=== PATIENT | female | born 2005 | race Caucasian/White ===

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

== ENCOUNTER 2023-08-18 16:37 | Emergency (ER) | payer OTHER ==
[~2023-08-18] VITALS: Ht 165.1 cm; Wt 95.3 kg
[~2023-08-18 16:37] MED LIST changes: +LORA1T126 PO; +PROM118S5 PO
[2023-08-18 16:41] VITALS: BP 114/81; PULSE 123; RESP 18; TEMP 97.9; O2SAT 97
[2023-08-18] MEDS ORDERED: IBUP-2213 PO (17:17)
[2023-08-18] MEDS ORDERED: PRED20TA5 PO (17:17)
[2023-08-18] MEDS: NACL 0.9% 1,000 ML IV ONE (17:22)
[2023-08-18] MEDS: KETOROLAC 30 MG/ML VIAL IVP ONE (17:25)
[2023-08-18] MEDS: PENICILLIN G BENZATHINE L-A 1.2 MU/2 ML SYR IM ONE (17:36)
[2023-08-18 18:03] VITALS: BP 126/83; PULSE 105; RESP 18; TEMP 97.9; O2SAT 98
== END 2023-08-18 18:05 | disposition home or self-care (01) ==
LOC: MED 16:37
DX: J02.0 Streptococcal pharyngitis (principal); R11.2 Nausea with vomiting, unspecified; F12.90 Cannabis use, unspecified, uncomplicated; Z79.899 Other long term (current) drug therapy
CPT/HCPCS: 81002; 81025; 96361; 96372; 96374; 99284; J0561; J1885; J7030